=== PATIENT | female | born 1985 ===

== ENCOUNTER 2017-02-25 11:30 | Observation (INO) | payer OTHER, SELFPAY ==
[~2017-02-25] VITALS: Ht 175.3 cm; Wt 82.1 kg
--- NOTE | ~2017-02-25 | HP ---
PATIENT'S NAME: PRITI ERICKSON [facility] AGE: 31 Y [address] ROOM: [place] [address] LOCATION: GPCU ADMIT DATE: 02/25/2017 History & Physical DISCHARGE DATE: FAMILY PHYSICIAN: PHYSICIAN, UNKNOWN ATTENDING PHYSICIAN: America GREGORIO DATE OF SERVICE: CHIEF COMPLAINT: Acute encephalopathy. HISTORY OF PRESENT ILLNESS: The patient is a 31-year-old female, who was brought by her for presumed alcohol intoxication and Ambien overdose. The patient and her were camping yesterday evening and the found the patient early this morning outside by the car on the floor. According to notes from [facility], the patient has had close to 12 to 24 servings of beer and has had possible 20 pills of 10 mg Ambien. The reports that when he went through her pills, her Ambien bottle was empty. However, her bupropion and tramadol had pills and appeared to be appropriate. The patient was taken to [facility] and was found to have ethanol level of 232. The patient was sedated, but wakes up to voice and follows simple commands. Her ABG at the outside hospital was 7.3, pCO2 of 41.5, and bicarbonate of 21.3. The patient was transferred to our hospital for further care. Poison Control was called and suggested observation with serial EKGs. PAST MEDICAL HISTORY: Unable to obtain. PAST SURGICAL HISTORY: Unable to obtain. FAMILY HISTORY: Unable to obtain as the patient is sedated and somnolent. SOCIAL HISTORY: Unable to obtain as the patient is somnolent and is not alert. MEDICATIONS: 1. Tramadol. 2. Bupropion. 3. Ambien. REVIEW OF SYSTEMS: Unable to obtain due to patient's somnolent state. PATIENT'S NAME: PRITI ERICKSON [facility] AGE: 31 Y [address] ROOM: [place] [id number] LOCATION: GPCU ADMIT DATE: 02/25/2017 History & Physical DISCHARGE DATE: FAMILY PHYSICIAN: PHYSICIAN, UNKNOWN ATTENDING PHYSICIAN: America GREGORIO PHYSICAL EXAMINATION: VITAL SIGNS: Temperature of 97.6, blood pressure of 130/74, heart rate of 110, and respiratory rate of 26. GENERAL APPEARANCE: The patient is somnolent, but awakes to voice. Follows commands for a few seconds and goes back to sleep. HEENT: Head is normocephalic and atraumatic. Nose; no nasal discharge. Eyes; extraocular muscles intact. Pupils are reactive to light. Ears; no ear discharge. Nose; no nasal discharge. Mouth; dry oral mucosa. CHEST: Clear to auscultation bilaterally. HEART: Tachycardic. No murmurs, rubs, or gallops. ABDOMEN: Soft, nontender, and nondistended. SKIN: Warm to touch. MUSCULOSKELETAL: No obvious effusion noted. SAP DEVELOPER: The patient is somnolent, awakes to voice. Follows few commands and goes back to sleep subsequently. LABORATORY DATA AND IMAGING STUDIES: Laboratories done at the outside hospital shows a pH of 7.319, pCO2 of 41.5, and bicarbonate of 21.3. Renal function panel shows a sodium of 144, CO2 of 27, creatinine of 0.8, and sugar of 104. EKG; sinus tachycardia. ASSESSMENT AND PLAN: 1. Acute encephalopathy etiology secondary to possible Ambien over toxication and alcohol intoxication. To admit the patient for observation with supportive treatment. We will start the patient on banana bag. Start the patient on IV fluids. Per Poison Control to check EKG q.6 hours for QRS and QTc prolongation. To keep potassium greater than 4.5, calcium greater than 9, and magnesium greater than 2. The police were called for evaluation for EPC due to suspicion of a suicidal attempt. She was deemed to be suicidal and was not placed under EPC. Consult Psychiatry tomorrow morning. We will follow the patient clinically. We will keep the patient on telemonitor. Discussed assessment and plan with the patient's . 2. Alcohol intoxication. See problem #1. 3. We will admit the patient for observation with supportive care for alcohol intoxication and possible Ambien intoxication. Poison Control on board. Greater than 30 minutes were spent in patient's care. PATIENT'S NAME: PRITI ERICKSON [facility] AGE: 31 Y [address] ROOM: [id number] [place] [id number] LOCATION: [facility] ADMIT DATE: 02/25/2017 History & Physical DISCHARGE DATE: FAMILY PHYSICIAN: PHYSICIAN, UNKNOWN ATTENDING PHYSICIAN: America GREGORIO MD AD/jhoana /[id number] D: [id number] T: [id number] HISTORY & PHYSICAL
--- NOTE | ~2017-02-25 | DS ---
PATIENT'S NAME: PRITI ERICKSON [facility] AGE: 31 Y [address] ROOM: [address] [address] LOCATION: GPCU ADMIT DATE: 02/25/2017 Discharge Summary DISCHARGE DATE: 02/25/2017 FAMILY PHYSICIAN: Physician, Unknown ATTENDING PHYSICIAN: Herson Cross ADMISSION DIAGNOSIS: Alcohol intoxication with possible Ambien overdose and acute encephalopathy. DISCHARGE DIAGNOSIS: Alcohol intoxication with possible Ambien overdose and acute encephalopathy. SECONDARY DIAGNOSIS: Alcohol abuse. CONSULTATIONS: Psychiatry consulted, however, patient signed AMA. HISTORY OF PRESENTING ILLNESS: The patient is a 31-year-old female, who presented initially here from outside hospital with acute encephalopathy secondary to alcohol intoxication and possible Ambien overdose with 20 pills of 10 mg Ambien. The patient was admitted for observation per Poison Control. HOSPITAL COURSE: The patient was admitted and initially patient was somnolent. Urine tox screen was negative. The patient's vital signs were stable. Per Poison Control, the patient was admitted and supposed to have EKG q.6 hours and electrolytes including magnesium to be drawn to keep potassium greater than 4.5, calcium greater than 9, and magnesium greater than 2. However, the patient wanted to go home. There was concern for hurting oneself as the patient was found with empty bottle of Ambien. Local precinct police sergeant was called to evaluate for EPC. She was evaluated by EPC and was deemed to be not suicidal and she was not placed on a RET. Subsequently, the patient was up and wanted to go home. Discussed about continuing off observation and the risks factor of going home. The patient repeatedly requested to go home and signed out against medical advice. The patient signed against medical advice. A long discussion was made with the patient about not using Ambien with alcohol and offered ways to have a sleep hygiene. Discussion about sleep hygiene. Once again, I went over the risk factors of signing AMA including worsening of sedation and cardiac abnormality, however, the patient was found to be tachycardic during her stay with mildly elevated QTc of 475. IMPRESSION: The patient once again wanted to sign AMA. The patient signed AMA. CONDITION: Stable. DISPOSITION: Home. The patient signed out AMA. PATIENT'S NAME: PRITI ERICKSON [facility] AGE: 31 Y [address] ROOM: [id number] [place], [place] [address] LOCATION: GPCU ADMIT DATE: 02/25/2017 Discharge Summary DISCHARGE DATE: 02/25/2017 FAMILY PHYSICIAN: Physician, Unknown ATTENDING PHYSICIAN: Herson Cross DISCHARGE MEDICATIONS: No discharge medications. Told the patient not to take Ambien. DISCHARGE INSTRUCTIONS: 1. To avoid alcohol use and use of Ambien, and not to drive going back home. The patient was to be picked by . 2. Recommendation to follow up with PCP. Greater than 30 minutes were spent on this discharge summary. MD HERBERT AHUJA/jhoana /[id number] d: 02/25/17 2255 t: 02/26/17 0837, DISCHARGE SUMMARY
[2017-02-25 13:54] LABS: OPIATES NEGATIVE (NEGATIVE)
[2017-02-25 13:55] LABS: AMPHETAMINE NEGATIVE (NEGATIVE); BARBITURATE NEGATIVE (NEGATIVE); COCAINE NEGATIVE (NEGATIVE)
--- NOTE | 2017-02-25 14:15 | NUR ---
ADMIT NOTE: ALERT. DROWSEY. ARRIVED [facility], FROM MORNING [facility] ER. HAD TAKEN PT. INTO ER WHEN SHE WAS FOUND DECREASED LOC. ELEVATED BLOOD ALCOHOL. CONCERNED SHE MAY HAVE TAKEN OD ON AMBIEN. FOUND BOTTLE, EMPTY, BUT PT. HAS A TENDENCY TO "HIDE" MEDS. PT. VOICED SHE ONLY TO ONE AMBIEN. [employer] CAME TO ASSESS PT. AND THERE IS NO NEED FOR PCP. HAS CALLED AND VERY UPSET AT NOT KNOWING. INFORMED THAT PHYSICIAN WILL CALL HIM WHEN KNOWS MORE.
[2017-02-25 17:48] LABS: ALBUMIN 3.2 gm/dL (3.5-5.0); ALK PHOS 71 IU/L (33-138); ALT 25 IU/L (12-78); AST 23 IU/L (10-40); BLOOD UREA NITROGEN 6 mg/dL (6-24); CHLORIDE 114 mMol/L (96-110); CO2 22 mMol/L (22-32); CPK 235 IU/L (21-215); CREATININE 0.7 mg/dL (0.5-1.1); ESTIMATED GFR (MDRD EQUATION) > 60; POTASSIUM 4.1 mMol/L (3.7-5.1); TOTAL BILIRUBIN 0.3 mg/dL (0.0-1.5); TOTAL PROTEIN 6.4 g/dL (6.0-8.4)
[2017-02-25 17:52] LABS: ANION GAP 14.1 (10.0-19.0); CALCIUM 7.4 mg/dL (8.5-10.5); SODIUM 146 mMol/L (135-145)
== END 2017-02-25 18:57 | disposition left against medical advice (07) ==
LOC: GPCU 11:54
PROVIDERS: ADMIT Internal Medicine
DX: F10.129 Alcohol abuse with intoxication, unspecified (principal); G93.40 Encephalopathy, unspecified
CPT/HCPCS: G0378; G0480; J3411; J7030